=== PATIENT | female | born 1955 ===

== ENCOUNTER → 2024-06-07 07:00 | Outpatient (REF) | payer BC, SELFPAY | LOC: CLAB 07:00 | PROVIDERS: ATTENDING PHYSICIAN Orthopaedic Surgery | DX: M20.11 Hallux valgus (acquired), right foot (principal); M21.6X1 Other acquired deformities of right foot; S93.12 Dislocation of metatarsophalangeal joint; M20.41 Other hammer toe(s) (acquired), right foot; M20.5X1 Other deformities of toe(s) (acquired), right foot; M77.41 Metatarsalgia, right foot; D49.2 Neoplasm of unspecified behavior of bone, soft tissue, and skin | CPT/HCPCS: 88305 ==